=== PATIENT | male | born 1970 | race Caucasian/White ===

== ENCOUNTER → 2017-01-28 | Outpatient (CLI) | payer SELFPAY ==
[2014-07-28 09:30] VITALS: BP 127/76
--- NOTE | 2017-01-28 14:29 | CT ---
HISTORY: Hypertension, hypercholesterolemia, screening Cardiac calcium scoring. Technique: Multiple axial images of the chest were obtained on a [address] from the aortic arch to the base of the heart with noncontrast prospective gating. AEC was utilized. Findings: A total calcium score of 2 is observed. The score results in very unlikely, less than 10%, likeliho od of coronary events given the age and sex matched cohort analysis. There is minimal identifiable plaque. Surrounding soft tissues are unremarkable. There is mild thoracic spondylosis. IMPRESSION: Minimal Coronary atherosclerotic plaque. Reported By:
== END ==
LOC: RAD 12:46
PROVIDERS: ATTEND Nurse Practitioner Family
DX: Z13.6 Encounter for screening for cardiovascular disorders (principal)

== ENCOUNTER → 2017-03-20 | Outpatient (CLI) | payer BC ==
[2014-07-28 09:30] VITALS: BP 127/76
== END ==
LOC: RAD 12:38
PROVIDERS: ATTEND Physician Assistant
DX: R00.2 Palpitations (principal)
CPT/HCPCS: 93306

== ENCOUNTER → 2017-03-31 | Outpatient (CLI) | payer BC ==
[2014-07-28 09:30] VITALS: BP 127/76
== END ==
LOC: RAD 08:10
PROVIDERS: ATTEND Physician Assistant
DX: R00.2 Palpitations (principal)
CPT/HCPCS: 78452; 93017; A9502

== ENCOUNTER → 2017-05-07 | Outpatient (CLI) | payer BC ==
[2014-07-28 09:30] VITALS: BP 127/76
--- NOTE | 2017-05-07 15:58 | RAD ---
HISTORY: Neck pain, hand numbness Study: AP and lateral cervical spine Comparison: None Findings: The prevertebral soft tissues are normal. The alignment is normal. The vertebral bodies are of avera ge height. The disc spaces are preserved. The posterior elements are intact. The odontoid is intact. The joints are within normal limits. IMPRESSION: No significant abnormality identified Reported By:
== END ==
LOC: RAD 15:23
PROVIDERS: ATTEND Nurse Practitioner Family
DX: M54.2 Cervicalgia (principal)
CPT/HCPCS: 72040

== ENCOUNTER → 2017-05-13 | Outpatient (CLI) | payer BC ==
[2014-07-28 09:30] VITALS: BP 127/76
--- NOTE | 2017-05-14 15:10 | MRI ---
STUDY: MRI OF THE CERVICAL SPINE HISTORY: Neck pain with numbness and tingling in upper extremities. Comparison: Cervical spine radiographs from May 07, 2017. Technique: Multiplanar multisequence MRI of the cervical spine was obtained utilizing standard depar tmental protocol. Findings: Alignment of the cervical spine is maintained. No abnormal signal characteristics of the bone marro w can be identified. No evidence for fracture or significant bone or edema can be seen. The surrou nding soft tissues are unremarkable. There is degenerative disk disease at several levels, most not ably at C3/4. No intrinsic signal abnormalities are identified within the cervical spinal cord itsel f. Axial images: C2 -- C3: Normal. C3 -- C4: There is a posterior disc osteophyte complex and bilateral uncovertebral osteophyte format ion. The combination of these findings results in mild central canal stenosis. There is mild left ne ural foraminal narrowing. C4 -- C5: There is a posterior disc osteophyte complex and mild uncovertebral osteophyte formation. The central canal and neural foramina remain adequate. C5 -- C6: There is minimal disc osteophyte complex and bilateral uncovertebral osteophyte formation. The central canal neural foramina are adequate. C6 -- C7: There is a central osteophyte, slightly asymmetric to the right of midline. There is mild uncovertebral osteophyte formation. The central canal and neural foramina are adequate. C7 -- T1: Normal. IMPRESSION: 1. Mild multilevel cervical spondylosis as described above. 2. Mild central canal stenosis at C3/4. 3. Mild left neural foraminal stenosis at C3/4. Reported By:
== END | disposition home or self-care (01) | DRG 552 ==
LOC: RAD 14:49
PROVIDERS: ATTEND Nurse Practitioner Family
DX: M54.2 Cervicalgia (principal); M47.892 Other spondylosis, cervical region
CPT/HCPCS: 72141

== ENCOUNTER → 2017-06-20 | Outpatient (CLI) | payer BC ==
[2014-07-28 09:30] VITALS: BP 127/76
== END ==
LOC: RT 10:18
PROVIDERS: ATTEND Neurological Surgery
DX: G56.23 Lesion of ulnar nerve, bilateral upper limbs (principal)

== ENCOUNTER → 2017-10-24 | Outpatient (CLI) | payer BC ==
[2014-07-28 09:30] VITALS: BP 127/76
[2017-10-24 08:10] LABS: BASOPHILS # (AUTO) 0.1 X10^3/uL (0.0-0.1); EOSINOPHILS # (AUTO) 0.2 x10^3/uL (0.0-0.2); EOSINOPHILS % (AUTO) 3.1 % (0.9-2.9); HEMATOCRIT 45.5 % (42.0-54.0); HEMOGLOBIN 15.6 g/dL (13.5-18.0); LYMPHOCYTES # (AUTO) 1.9 X10^3/uL (1.3-2.9); LYMPHOCYTES % (AUTO) 27.5 % (21.0-51.0); MEAN CORPUSCULAR HEMOGLOBIN 28.9 pg (27.0-34.0); MEAN CORPUSCULAR HGB CONC 34.4 g/dL (33.0-35.0); MEAN CORPUSCULAR VOLUME 84.1 fL (80.0-100.0); MEAN PLATELET VOLUME 8.8 fL (7.4-11.0); MONOCYTES # (AUTO) 0.6 x10^3/uL (0.3-0.8); MONOCYTES % (AUTO) 9.2 % (0.0-13.0); NEUTROPHILS # (AUTO) 4.1 x10^3/uL (2.2-4.8); NEUTROPHILS % (AUTO) 59.2 % (42.0-75.0); PLATELET COUNT 188 X10^3/uL (150.0-450.0); RED CELL DISTRIBUTION WIDTH 13.8 % (11.6-16.5); WHITE BLOOD COUNT 6.9 X10^3/uL (3.6-10.0)
[2017-10-24 08:20] LABS: ALANINE AMINOTRANSFERASE 45 Units/L (12-78); ALKALINE PHOSPHATASE 39 Units/L (46-116); ASPARTATE AMINO TRANSFERASE 23 Units/L (15-37); BLOOD UREA NITROGEN 15 mg/dL (7-18); CALCIUM 8.9 mg/dL (8.5-10.1); CARBON DIOXIDE 27.3 mmol/L (21-32); CHLORIDE 105 mmol/L (98-107); CHOL/HDL RATIO 4.8 (0.0-5.0); CHOLESTEROL 119 mg/dL (0-200); COR NA(FOR HYPERGLY) 140 mmol/L (136-145); CREATININE 0.95 mg/dL (0.70-1.30); HDL CHOLESTEROL 25 mg/dL (40-60); SODIUM 139 mmol/L (136-145); TOTAL PROTEIN 7.3 g/dL (6.4-8.2); TRIGLYCERIDES 160 mg/dL (0-150); eGFR BLACK RACES > 60 (>60); eGFR NON BLACK RACES > 60 (>60)
[2017-10-24 08:45] LABS: TOTAL PSA 0.78 ng/mL (0.13-4.0)
== END ==
LOC: LAB 07:50
PROVIDERS: ATTEND Nurse Practitioner Family
DX: R35.8 Other polyuria (principal); I10 Essential (primary) hypertension; E78.2 Mixed hyperlipidemia; E34.8 Other specified endocrine disorders
CPT/HCPCS: 36415; 80053; 80061; 84153; 84270; 84402; 84403; 85025

== ENCOUNTER → 2017-11-20 | Outpatient (CLI) | payer BC ==
[2014-07-28 09:30] VITALS: BP 127/76
--- NOTE | 2017-11-20 19:28 | RAD ---
Examination: Right elbow, three views History: Elbow pain Findings: No evidence for fracture, dislocation or synovial distension. There is a prominent enthesop hyte involving the olecranon process of the ulna. Impression: No acute findings. Olecranon enthesophyte. Reported By:
== END ==
LOC: RAD 16:00
PROVIDERS: ATTEND Orthopaedic Surgery
DX: M25.521 Pain in right elbow (principal); M25.522 Pain in left elbow
CPT/HCPCS: 73070

== ENCOUNTER → 2017-12-05 | Outpatient (CLI) | payer BC ==
[2014-07-28 09:30] VITALS: BP 127/76
== END ==
LOC: LAB 08:17
PROVIDERS: ATTEND Psychiatry & Neurology Neurology
DX: R23.2 Flushing (principal)
CPT/HCPCS: 82384

== ENCOUNTER → 2017-12-12 | Outpatient (CLI) | payer BC ==
[2014-07-28 09:30] VITALS: BP 127/76
[~2017-12-12] MED LIST: NS 100 ML IV 100 ML IV ONE
--- NOTE | 2017-12-12 12:26 | CT ---
HISTORY: Elevated urine catecholamines. Study: Computed tomography of the abdomen: Multiple axial images were obtained throughout the abdom en before and after the infusion of intravascular contrast per adrenal protocol. Oral contrast was a dministered. Radiation dose reduction techniques utilized. Comparison: None Findings: The lung bases demonstrate mild hypostatic change. No pleural effusions or parenchymal infiltrates a re identified. The heart size is normal. Uninfused images demonstrate mild to moderate fatty infiltration of the liver. No biliary calcifica tions, adrenal calcifications or renal calcifications are identified. The proximal ureters show no c alcifications. The infused images demonstrate no focal lesions of the liver. The gallbladder is normal in its appea patricia. The common bile duct is nondilated. The pancreas is normal in its appearance. The spleen is normal in its appearance allowing for phase of contrast injection. The adrenal glands are normal. The kidneys enhance normally. The ureters are nondilated. No evidence of renal mass or hydronephros is is present. The abdominal aorta is normal in its appearance. No evidence of retroperitoneal lymph node enlargeme nt is identified. No evidence of enhancing retroperitoneal masses are identified. A tiny fat contai andrzej umbilical hernia is present. The stomach is nondistended. The small bowel is nondistended. No evidence of mesenteric adenopathy is identified. The cecum demonstrates a few diverticula as does the transverse colon and the descend ing colon. No evidence of diverticulitis is noted. Examination of the bone windows demonstrate mild thoracic and lumbar spondylosis. No lytic or blasti c lesions are identified. IMPRESSION: 1. Both adrenal glands are normal. I see no evidence of an enhancing mass in the abdomen that would suggest a pheochromocytoma. As a small percentage of pheochromocytomas arise outside the adrenal gl and further evaluation with CT scan of the chest and pelvis is recommended to exclude the possibility of ectopic tissue. 2. Minimal diverticular disease. No evidence of diverticulitis is noted. Reported By:
== END ==
LOC: RAD 07:55
PROVIDERS: ATTEND Psychiatry & Neurology Neurology
DX: R82.5 Elevated urine levels of drugs, medicaments and biological substances (principal); K57.30 Diverticulosis of large intestine without perforation or abscess without bleeding
CPT/HCPCS: 74170; A4222

== ENCOUNTER → 2017-12-31 | Outpatient (CLI) | payer BC ==
[2014-07-28 09:30] VITALS: BP 127/76
[2017-12-31 15:51] LABS: BILIRUBIN,URINE NEGATIVE (NEGATIVE); BLOOD/HEMOGLOBIN,URINE NEGATIVE (NEGATIVE); GLUCOSE, URINE NEGATIVE (NEGATIVE); KETONES,URINE NEGATIVE (NEGATIVE); LEUKOCYTE ESTERASE ,URINE NEGATIVE (NEGATIVE); NITRITES,URINE NEGATIVE (NEGATIVE); PROTEIN,URINE NEGATIVE (NEGATIVE); UROBILINOGEN,URINE NORMAL (NORMAL)
[2017-12-31 15:57] LABS: ALBUMIN 4.3 g/dL (3.4-5.0); BLOOD UREA NITROGEN 15 mg/dL (7-18); CHLORIDE 103 mmol/L (98-107); COR NA(FOR HYPERGLY) 142 mmol/L (136-145); CREATININE 1.05 mg/dL (0.70-1.30); PHOSPHORUS 3.7 mg/dL (2.6-4.7); SODIUM 142 mmol/L (136-145); URIC ACID 5.8 mg/dL (3.5-7.2); eGFR BLACK RACES > 60 (>60); eGFR NON BLACK RACES > 60 (>60)
[2017-12-31 16:00] LABS: APPEARANCE,URINE CLEAR (CLEAR); COLOR,URINE YELLOW (YELLOW)
[2017-12-31 16:10] LABS: BASOPHILS % (AUTO) 0.7 % (0.2-1.0); EOSINOPHILS # (AUTO) 0.2 x10^3/uL (0.0-0.2); EOSINOPHILS % (AUTO) 2.6 % (0.9-2.9); HEMATOCRIT 44.8 % (42.0-54.0); HEMOGLOBIN 15.7 g/dL (13.5-18.0); LYMPHOCYTES # (AUTO) 2.1 X10^3/uL (1.3-2.9); LYMPHOCYTES % (AUTO) 29.9 % (21.0-51.0); MEAN CORPUSCULAR HEMOGLOBIN 29.7 pg (27.0-34.0); MEAN CORPUSCULAR HGB CONC 35.1 g/dL (33.0-35.0); MEAN CORPUSCULAR VOLUME 84.5 fL (80.0-100.0); MEAN PLATELET VOLUME 9.3 fL (7.4-11.0); MONOCYTES # (AUTO) 0.7 x10^3/uL (0.3-0.8); MONOCYTES % (AUTO) 9.5 % (0.0-13.0); NEUTROPHILS % (AUTO) 57.3 % (42.0-75.0); PLATELET COUNT 186 X10^3/uL (150.0-450.0); RED CELL DISTRIBUTION WIDTH 13.5 % (11.6-16.5)
[2017-12-31 16:45] LABS: CREATININE,URINE 133.66 mg/dL (40-278); TOTAL PROTEIN,URINE 12.1 mg/dl (0-11.9)
[2018-01-05 06:46] LABS: NORMETANEPHRINE 0.41
[2018-01-05 06:47] LABS: METANEPHRINE 0.18
== END ==
LOC: LAB 15:08
PROVIDERS: ATTEND Internal Medicine
DX: I10 Essential (primary) hypertension (principal)
CPT/HCPCS: 36415; 80069; 81003; 82533; 82570; 83835; 84157; 84550; 85025

== ENCOUNTER → 2018-02-05 | Outpatient (CLI) | payer BC ==
[2014-07-28 09:30] VITALS: BP 127/76
== END ==
LOC: LAB 07:41
PROVIDERS: ATTEND Internal Medicine Endocrinology, Diabetes & Metabolism
DX: R23.2 Flushing (principal); E27.49 Other adrenocortical insufficiency; R53.83 Other fatigue; R82.5 Elevated urine levels of drugs, medicaments and biological substances; I10 Essential (primary) hypertension
CPT/HCPCS: 36415; 82088; 82308; 82533; 82607; 82627; 83520; 84244; 84305

== ENCOUNTER → 2018-02-16 | Outpatient (CLI) | payer BC ==
[2014-07-28 09:30] VITALS: BP 127/76
== END ==
LOC: LAB 14:43
PROVIDERS: ATTEND Nurse Practitioner Family
DX: E34.8 Other specified endocrine disorders (principal)
CPT/HCPCS: 82671

== ENCOUNTER 2019-07-27 14:53 | Observation (INO) ==
[2019-07-27] MEDS ORDERED: LEVSIN/MAALOX/LIDOC VISC PO ONE (15:40)
[2019-07-27] MEDS ORDERED: DILAUDID INJ ONE (15:42)
[2019-07-27] MEDS ORDERED: ZOFRAN INJ 4 MG VIAL ONE (15:42)
[2019-07-27] MEDS ORDERED: LEVSIN/MAALOX/LIDOC VISC ONE (15:48)
[2019-07-27 16:17] LABS: BASOPHILS # (AUTO) 0.1 X10^3/uL (0.0-0.1); BASOPHILS % (AUTO) 0.8 % (0.2-1.0); EOSINOPHILS # (AUTO) 0.2 x10^3/uL (0.0-0.2); EOSINOPHILS % (AUTO) 2.9 % (0.9-2.9); HEMATOCRIT 41.5 % (42.0-54.0); HEMOGLOBIN 14.2 g/dL (13.5-18.0); LYMPHOCYTES # (AUTO) 1.7 X10^3/uL (1.3-2.9); LYMPHOCYTES % (AUTO) 28.4 % (21.0-51.0); MEAN CORPUSCULAR HEMOGLOBIN 29.2 pg (27.0-34.0); MEAN CORPUSCULAR HGB CONC 34.2 g/dL (33.0-35.0); MEAN CORPUSCULAR VOLUME 85.5 fL (80.0-100.0); MEAN PLATELET VOLUME 8.2 fL (7.4-11.0); MONOCYTES # (AUTO) 0.6 x10^3/uL (0.3-0.8); MONOCYTES % (AUTO) 10.3 % (0.0-13.0); NEUTROPHILS # (AUTO) 3.5 x10^3/uL (2.2-4.8); NEUTROPHILS % (AUTO) 57.6 % (42.0-75.0); PLATELET COUNT 196 X10^3/uL (150.0-450.0); RED BLOOD COUNT 4.86 X10^6/uL (4.7-6.0); RED CELL DISTRIBUTION WIDTH 13.8 % (11.6-16.5); WHITE BLOOD COUNT 6.2 X10^3/uL (3.6-10.0)
[2019-07-27 16:18] VITALS: BMI 34.9
[2019-07-27] MEDS ORDERED: DILAUDID INJ IVP PRN (16:22)
[2019-07-27] MEDS ORDERED: ZOFRAN INJ 4 MG VIAL IVP PRN (16:22)
[2019-07-27 16:27] LABS: ALANINE AMINOTRANSFERASE 38 Units/L (12-78); ALBUMIN 4.1 g/dL (3.4-5.0); ALKALINE PHOSPHATASE 45 Units/L (46-116); ASPARTATE AMINO TRANSFERASE 24 Units/L (15-37); BLOOD UREA NITROGEN 13 mg/dL (7-18); CALCIUM 8.9 mg/dL (8.5-10.1); CARBON DIOXIDE 25.7 mmol/L (21-32); CHLORIDE 106 mmol/L (98-107); CREATININE 0.98 mg/dL (0.70-1.30); SODIUM 143 mmol/L (136-145); TOTAL PROTEIN 7.3 g/dL (6.4-8.2); eGFR NON BLACK RACES > 60 (>60)
[2019-07-27] MEDS ORDERED: PROTONIX INJ 40 MG VIAL ONE (16:29)
[2019-07-27] MEDS ORDERED: D5 1/2 NS 1000 ML 1,000 ML IV ONE (16:29)
[2019-07-27] MEDS: PROTONIX INJ 40 MG VIAL IVP SCH (16:33)
[2019-07-27] MEDS: D5 1/2 NS 1000 ML 1,000 ML IV SCH (16:33)
[2019-07-27] MEDS: DONNATAL TAB PO PRN ×2 (17:01→23:09)
--- NOTE | 2019-07-27 17:07 | DR.CONSULT ---
CONSULT Consultation for Day of: Date: 07/27/19 Chief Complaint Chief Complaint: abdominal pain, nausea Allergies Allergies Allergy/AdvReac Type Severity Reaction Status Date / Time No Known Drug Allergies Allergy Verified 03/26/18 21:36 History of Present Illness History of Present Illness: Patient is a 49y/o male with a PMH of sigmoid resection due to complicated diverticulitis in 2011, HTN, HLD, Obesity presented to clinic with LLQ abdominal pain that started 3 days ago. He reports pain as colicky with spasms that has been progressively getting worse. He denies radiation. He also has associated nausea and diarrhea, no vomiting. He reports chills. He has been taking for symptomatic relief but reports pain is getting severe. He had a complicated episode of diverticulitis in 2011 requiring sigmoid resection with post-op complications including peritonitis. He has had decreased appetite over the last 2 days. Past Medical History Past Medical History: Depression, Dyslipidemia, Hypertension and Sleep Apnea Past Surgical History Surgical History: Bowel Resection and Cholecystectomy Family History Family Medical History: Cancer and Hypertension Social History Does patient currently use any type of tobacco product: No Have you used tobacco products in the last 12 months: No Type of Tobacco Use: None Does any household member use tobacco: No Alcohol Use: Occasionally Drug Use: None Medications Home Medications: No Known Drug Allergies Allergy (Verified 03/26/18 21:36) CONTINUE taking the following medications Lactobac #2-Bifido #1-S. therm [VSL#3] 2 cap PO BID 07/27/19 [History] carbinoxamine maleate 4 mg PO HS 07/27/19 [History] eszopiclone [Lunesta] 2 mg PO QHS PRN 07/27/19 [History] fluoxetine [Prozac] 20 mg PO DAILY 07/27/19 [History] lisinopril 20 mg PO DAILY 07/27/19 [History] omega 3-mzb-sgq-fish oil [Fish Oil] 1 cap PO BID 07/27/19 [History] dvzwyzcqo-wzbfhq-nlnbbsnz-scop [] 1 tab PO QID PRN 07/27/19 [History] testosterone 1 packet TRANSDERMAL QAM 07/27/19 [History] Review of Systems Constitutional: Chills; denies Fever and Weakness Eyes: No Symptoms Reported ENT: No Symptoms Reported Respiratory: denies Cough and Shortness of Breath Cardiovascular: No Symptoms Reported Gastrointestinal: Nausea, Abdominal Pain and Diarrhea Genitourinary: No Symptoms Reported Musculoskeletal: No Symptoms Reported Skin: No Symptoms Reported Neurological: No Symptoms Reported Physical Exam Vital Signs: Respiratory Rate 18 Blood Pressure 131/74 Oriented: Normal Eyes: Normal Throat: Normal Respiratory: Clear Throughout Cardiovascular: Normal and Bradycardia Auscultation: Bowel Sounds: Normal Tenderness: LLQ Skin: Normal Musculoskeletal: Normal Psychiatric: Normal Mood Description: Calm Affect: Normal Speech Pattern: Clear and Appropriate Plan Plan: Patient seen in surgery clinic this afternoon due to progressive worsening of LLQ pain with a hx of diverticulitis. Patient admitted to the hospital for further management. Medicine consulted for medical management. Acute diverticulitis - Daily labs: CBC, CMP, UA - follow up CTAP, NPO, IVF, pain control, anti-emetics - start Cipro and Flagyl - check for C.diff - add probiotics , GI cocktail Hypertension: BP: 148/91, resume metoprolol succinate and lisinopril HLD: resume crestor GERD: switch to IV protonix while NPO Will continue to follow along.
--- NOTE | 2019-07-27 19:01 | CT ---
CT OF THE ABDOMEN AND PELVIS WITH CONTRAST HISTORY: Abdominal pain. Comparison: 12/12/2017 Technique: Multiple axial images of the abdomen and pelvis were obtained from the lung bases to the pubic symphysis follow the administration of IV contrast. Dose reduction techniques including Automated Exposure Control (AEC) and adjustment of mA and kV were utlized. Findings: The heart is normal in size. There is no pericardial effusion. Lung bases are clear without focal consolidation, pleural effusion or pneumothorax. Liver and spleen are normal in size, enhancement characteristics and contour. No focal lesions. The portal vein is patent. No ductal dilitation. Gallbladder absent. The pancreas is unremarkable. Adrenal glands are normal. Kidneys enhance symmetrically without hydronephrosis or nephrolithiasis. No bowel obstruction or inflammation. No abnormal appearing mesenteric or retroperitoneal lymph nodes. No free fluid or fluid collections. The bladder is normal in appearance. Normal appendix. Evidence of prior colon surgery. Diverticulosis without definite focal diverticular inflammation. No free fluid or abnormal pelvic lymph nodes. Prostate unremarkable. No aggressive osseous lesions. IMPRESSION: 1. No source of patient's acute abdominal pain identified on this examination. 2. Diverticulosis without focal diverticular inflammation. Reported By:
[2019-07-27] MEDS: LOVAZA PO SCH (20:14)
[2019-07-27] MEDS: VSL#3 PO SCH (20:14)
[2019-07-27] MEDS: CIPRO IV 400 MG PREMIX* 400 MG/200 ML IV.SOLN. IV SCH (20:15)
[2019-07-27] MEDS ORDERED: CRESTOR TAB 10 MG PO SCH (21:00)
[2019-07-27] MEDS ORDERED: CIPRO IV 400 MG PREMIX* 400 MG/200 ML IV.SOLN. IV SCH (21:00)
[2019-07-27 21:34] LABS: BILIRUBIN,URINE NEGATIVE (NEGATIVE); BLOOD/HEMOGLOBIN,URINE 1+ (NEGATIVE); GLUCOSE, URINE NEGATIVE (NEGATIVE); KETONES,URINE NEGATIVE (NEGATIVE); LEUKOCYTE ESTERASE ,URINE NEGATIVE (NEGATIVE); NITRITES,URINE NEGATIVE (NEGATIVE); PROTEIN,URINE 1+ (NEGATIVE); UROBILINOGEN,URINE NORMAL (NORMAL)
[2019-07-27 21:37] LABS: APPEARANCE,URINE CLEAR (CLEAR); COLOR,URINE YELLOW (YELLOW)
[2019-07-27 21:41] LABS: BACTERIA,URINE NEGATIVE /HPF (NEGATIVE); MUCUS,URINE FEW /HPF (NEGATIVE); RBC,URINE 0-2 /HPF (0-3); SQUAMOUS EPITHELIAL CELL,UR RARE /HPF (NEGATIVE)
[2019-07-27] MEDS: FLAGYL IV PREMIX 500 MG BAG 500 MG/100 ML BAG IV SCH (21:46)
[2019-07-27 23:28] LABS: CRYPTOSPORIDIUM PARVUM ANTIGEN NEGATIVE (NEGATIVE); GIARDIA LAMBLIA ANTIGEN NEGATIVE (NEGATIVE)
[2019-07-28] MEDS: D5 1/2 NS 1000 ML 1,000 ML IV SCH ×2 (01:03→04:00)
[2019-07-28] MEDS: FLAGYL IV PREMIX 500 MG BAG 500 MG/100 ML BAG IV SCH (05:28)
[2019-07-28] MEDS ORDERED: ZESTRIL TAB 20 MG ONE (08:02)
[2019-07-28] MEDS: PROTONIX INJ 40 MG VIAL IVP SCH (08:15)
--- NOTE | 2019-07-28 08:19 | PCM.PROG ---
Progress Note Progress Note for Day of Date of Exam: 07/28/19 Subjective Subjective: Patient seen at bedside this AM, reports feeling a lot better, abdominal pain has resolved. Denies N/V, had one episode of diarrhea last night. Denies fever or chills. CTAP done yesterday showed diverticulosis but no signs of inflammation. Past Medical Family Social History Past Med/Fam/Surg Hx: No changes since H&P Allergies: Allergies No Known Drug Allergies Allergy (Verified 03/26/18 21:36) Review of Systems ROS: No change since H&P Vital Signs and I&O's Vital Signs: Temperature 98.0 F Pulse Rate [Right Brachial] 45 Respiratory Rate 18 Blood Pressure [Right Arm] 111/55 Blood Pressure 131/74 O2 Sat by Pulse Oximetry 96 Intake and Output: Intake & Output 07/25/19 07/26/19 07/27/19 07/28/19 23:59 23:59 23:59 23:59 Intake Total 600 / 600 1350 / 1350 Balance 600 / 600 1350 / 1350 Physical Exam Oriented: Normal Eyes: Normal Throat: Normal Cardiovascular: Normal and Bradycardia Auscultation: Bowel Sounds: Decreased Tenderness: Normal Skin: Normal Musculoskeletal: Normal Psychiatric: Normal Mood Description: Calm Affect: Normal Speech Pattern: Clear and Appropriate Laboratory and Diagnostics Result Diagrams: 07/27/19 16:05 07/27/19 16:05 Labs: 07/27/19 21:15 Stool - Final Laboratory WBC 6.2 X10^3/uL (3.6-10.0) 07/27/19 16:05 RBC 4.86 X10^6/uL (4.7-6.0) 07/27/19 16:05 Hgb 14.2 g/dL (13.5-18.0) 07/27/19 16:05 Hct 41.5 % (42.0-54.0) L 07/27/19 16:05 MCV 85.5 fL (80.0-100.0) 07/27/19 16:05 MCH 29.2 pg (27.0-34.0) 07/27/19 16:05 MCHC 34.2 g/dL (33.0-35.0) 07/27/19 16:05 RDW 13.8 % (11.6-16.5) 07/27/19 16:05 Plt Count 196 X10^3/uL (150.0-450.0) 07/27/19 16:05 MPV 8.2 fL (7.4-11.0) 07/27/19 16:05 Neut % (Auto) 57.6 % (42.0-75.0) 07/27/19 16:05 Lymph % (Auto) 28.4 % (21.0-51.0) 07/27/19 16:05 [place] % (Auto) 10.3 % (0.0-13.0) 07/27/19 16:05 Eos % (Auto) 2.9 % (0.9-2.9) 07/27/19 16:05 Baso % (Auto) 0.8 % (0.2-1.0) 07/27/19 16:05 Neut # (Auto) 3.5 x10^3/uL (2.2-4.8) 07/27/19 16:05 Lymph # (Auto) 1.7 X10^3/uL (1.3-2.9) 07/27/19 16:05 [place] # (Auto) 0.6 x10^3/uL (0.3-0.8) 07/27/19 16:05 Eos # (Auto) 0.2 x10^3/uL (0.0-0.2) 07/27/19 16:05 Baso # (Auto) 0.1 X10^3/uL (0.0-0.1) 07/27/19 16:05 Absolute Nucleated RBC 0.0 /100WBC 07/27/19 16:05 Sodium 143 mmol/L (136-145) 07/27/19 16:05 Corrected Sodium TNP 07/27/19 16:05 Potassium 3.8 mmol/L (3.5-5.1) 07/27/19 16:05 Chloride 106 mmol/L (98-107) 07/27/19 16:05 Carbon Dioxide 25.7 mmol/L (21-32) 07/27/19 16:05 BUN 13 mg/dL (7-18) 07/27/19 16:05 Creatinine 0.98 mg/dL (0.70-1.30) 07/27/19 16:05 Est GFR (MDRD) Af Amer > 60 (>60) 07/27/19 16:05 Est GFR (MDRD) Non-Af > 60 (>60) 07/27/19 16:05 Glucose 92 mg/dL (65-99) 07/27/19 16:05 Calcium 8.9 mg/dL (8.5-10.1) 07/27/19 16:05 Corrected Calcium TNP 07/27/19 16:05 Total Bilirubin 0.50 mg/dL (0.2-1.0) 07/27/19 16:05 AST 24 Units/L (15-37) 07/27/19 16:05 ALT 38 Units/L (12-78) 07/27/19 16:05 Alkaline Phosphatase 45 Units/L (46-116) L 07/27/19 16:05 Total Protein 7.3 g/dL (6.4-8.2) 07/27/19 16:05 Albumin 4.1 g/dL (3.4-5.0) 07/27/19 16:05 Globulin 3.2 g/dL (2.5-4.5) 07/27/19 16:05 Albumin/Globulin Ratio 1.3 Ratio (1.1-2.1) 07/27/19 16:05 Specimen Type Clean catch urine 07/27/19 21:15 Urine Color Yellow (YELLOW) 07/27/19 21:15 Urine Appearance Clear (CLEAR) 07/27/19 21:15 Urine pH 5.0 (5.0 - 8.0) 07/27/19 21:15 Ur Specific [place] 1.010 (1.000-1.030) 07/27/19 21:15 Urine Protein 1+ (NEGATIVE) 07/27/19 21:15 Urine Glucose (UA) Negative (NEGATIVE) 07/27/19 21:15 Urine Ketones Negative (NEGATIVE) 07/27/19 21:15 Urine Occult Blood 1+ (NEGATIVE) 07/27/19 21:15 Urine Nitrite Negative (NEGATIVE) 07/27/19 21:15 Urine Bilirubin Negative (NEGATIVE) 07/27/19 21:15 Urine Urobilinogen Normal (NORMAL) 07/27/19 21:15 Ur Leukocyte Esterase Negative (NEGATIVE) 07/27/19 21:15 Urine RBC 0-2 /HPF (0-3) 07/27/19 21:15 Urine WBC None seen /HPF (0-5) 07/27/19 21:15 Ur Squamous Epith Cells Rare /HPF (NEGATIVE) 07/27/19 21:15 Urine Bacteria Negative /HPF (NEGATIVE) 07/27/19 21:15 Urine Mucus Few /HPF (NEGATIVE) 07/27/19 21:15 Ur Culture Indicated? No/not indicated 07/27/19 21:15 Stool Description See comment 07/27/19 21:15 Stool Description See comment 07/27/19 21:15 Stl Occult Blood (IFOB) Negative (NEGATIVE) 07/27/19 21:15 Stl C. diff Tox B Gene Negative (NEGATIVE) 07/27/19 21:15 Stl C. diff [id number] Negative (NEGATIVE) 07/27/19 21:15 Cryptosporid parvum Ag Negative (NEGATIVE) 07/27/19 21:15 Giardia lamblia Ag Negative (NEGATIVE) 07/27/19 21:15 Plan (1) Diverticulosis: Status: Acute Plan: presented with LLQ pain, prev hx of diverticulosis. CTAP done yesterday shows no signs of inflammation. Normal WBC's. Follow up surgery recommendations, continue IV abx, IVF, pain control Advance diet as tolerated UA showed blood, (-) for RBC's, will check CPK and BMP. (2) Abdominal pain: Status: Acute (3) Diarrhea: Status: Acute Plan: stool culture and C.diff pending, Avelina (-) , continue hydration (4) Hypertension: Status: Acute Plan: on lisinopril 20 mg qday, will hold metoprolol succinate due to bradycardia. (5) HLD (hyperlipidemia): Status: Acute Plan: continue Crestor (6) Obesity: Status: Acute (7) KATELIN (obstructive sleep apnea): Status: Acute (8) Depression: Status: Acute (9) S/P colon resection: Status: Acute
[2019-07-28] MEDS: CIPRO IV 400 MG PREMIX* 400 MG/200 ML IV.SOLN. IV SCH (08:25)
[2019-07-28] MEDS: VSL#3 PO SCH (08:27)
[2019-07-28] MEDS: LOVAZA PO SCH (08:28)
[2019-07-28] MEDS ORDERED: TOPROL XL PO SCH (09:00)
[2019-07-28] MEDS ORDERED: PROzac PO SCH (09:00)
[2019-07-28] MEDS ORDERED: ZESTRIL TAB 20 MG PO SCH (09:00)
[2019-07-28] MEDS ORDERED: LOVENOX INJ 40 MG SYR SC SCH (09:00)
[2019-07-28 09:08] LABS: BLOOD UREA NITROGEN 12 mg/dL (7-18); CALCIUM 8.6 mg/dL (8.5-10.1); CARBON DIOXIDE 28.2 mmol/L (21-32); CHLORIDE 106 mmol/L (98-107); COR NA(FOR HYPERGLY) 144 mmol/L (136-145); CREATINE KINASE 100 Units/L (39-308); CREATININE 1.09 mg/dL (0.70-1.30); SODIUM 143 mmol/L (136-145); eGFR NON BLACK RACES > 60 (>60)
[2019-07-28 12:35] VITALS: BP 147/82
[2019-07-29] MEDS ORDERED: TOPROL XL PO SCH (09:00)
== END 2019-07-28 12:33 | disposition home or self-care (01) ==
LOC: INTOOBSV 15:28 → MED/SURG 15:28 → UNDODISIN 07-28 12:33
PROVIDERS: ADMIT Surgery; ATTEND Surgery
DX: R10.84 Generalized abdominal pain; G47.33 Obstructive sleep apnea (adult) (pediatric); Z90.49 Acquired absence of other specified parts of digestive tract; I10 Essential (primary) hypertension; K57.32 Diverticulitis of large intestine without perforation or abscess without bleeding; R19.7 Diarrhea, unspecified; F32.9 Major depressive disorder, single episode, unspecified; Z79.899 Other long term (current) drug therapy
CPT/HCPCS: 36415; 74177; 80048; 80053; 81001; 82270; 82378; 82550; 85025; 87045; 87328; 87329; 87427; 87449; 87493; 87899; A4222; C9113; S0030; G0378; J0744; J1170; J2405; S5010